=== PATIENT | female | born 1965 | race Caucasian/White ===

== ENCOUNTER 2017-08-31 14:35 | Observation (INO) | payer OTHER ==
[~2017-08-31] VITALS: Ht 162.6 cm; Wt 65.0 kg
[~2017-08-31 14:35] MED LIST: LIDOCAINE HCL 1% PF 5 ML SYRINGE OTHER ONE; PROPOFOL 200 MG/20 ML AMP IV ONE
[2017-08-31 15:02] VITALS: BP 131/67; PULSE 88; RESP 18; TEMP 98.5; O2SAT 98
[2017-08-31] MEDS ORDERED: AMLO10TA2 PO (15:19)
[2017-08-31 15:20] VITALS: BP 133/67; PULSE 85; RESP 14; TEMP 98.1; O2SAT 100
--- NOTE | 2017-08-31 15:29 | PD ---
HPI Chief Complaint: Foreign Body Time Seen by Provider: 15:18 Travel History International Travel<30 days: No Contact w/Intl Traveler<30days: No Traveled to known affect area: No History of Present Illness HPI 51-year-old female complains of problem with swallowing. Patient states that she was eating pizza yesterday and the food bolus stuck behind her neck. Patient denies any chest pain or shortness of breath. Patient was unable to keep down any fluid or any fluid since yesterday. Patient denies any fever chills. Patient denies abdominal pain. Patient denies any problem with swallowing in the past. Patient has history of hypertension on medication for that. Patient denies history of diabetes. Patient is a non-smoker. Patient denies any history of CAD. PFSH Past Medical History Diminished Hearing: No Tetanus Vaccination: > 5 Years Influenza Vaccination: Yes ?: Not LMP: may 2017 : 3 Para: 3 Social History Alcohol Use: No Tobacco Use: No Substance Use: No Allergies-Medications (Allergen,Severity, Reaction): Coded Allergies: No Known Allergies (Verified Allergy, Unknown, 08/31/17) Reported Meds & Prescriptions Reported Meds & Active Scripts Active Reported Amlodipine (Amlodipine Besylate) 10 Mg Tab 10 Mg PO DAILY Review of Systems General / Constitutional: No: Fever Eyes: No: Visual changes HENT: No: Headaches Cardiovascular: No: Chest Pain or Discomfort Respiratory: No: Shortness of Breath Gastrointestinal: No: Abdominal Pain Genitourinary: No: Dysuria Musculoskeletal: No: Pain Skin: No Rash Neurologic: No: Weakness Psychiatric: No: Depression Endocrine: No: Polydipsia Hematologic/Lymphatic: No: Easy Bruising Physical Exam Narrative GENERAL: Well-nourished, well-developed patient. SKIN: Focused skin assessment warm/dry. HEAD: Normocephalic. EYES: No scleral icterus. No injection or drainage. NECK: Supple, trachea midline. No JVD or lymphadenopathy. CARDIOVASCULAR: Regular rate and rhythm without murmurs, gallops, or rubs. RESPIRATORY: Breath sounds equal bilaterally. No accessory muscle use. GASTROINTESTINAL: Abdomen soft, non-tender, nondistended. MUSCULOSKELETAL: No cyanosis, or edema. BACK: Nontender without obvious deformity. No CVA tenderness. Neurologic exam normal. Data Data Last Documented VS Vital Signs Date Time Temp Pulse Resp B/P (MAP) Pulse Ox O2 Delivery O2 Flow Rate FiO2 08/31/17 15:20 98.1 85 14 133/67 (89) 100 Room Air Orders Orders Electrocardiogram (08/31/17 15:22) Complete Blood Count With Diff (08/31/17 15:22) Comprehensive Metabolic Panel (08/31/17 15:22) Prothrombin Time / Inr (Pt) (08/31/17 15:22) Act Partial Throm Time (Ptt) (08/31/17 15:22) Chest, Single Ap (08/31/17 15:22) Iv Access Insert/Monitor (08/31/17 15:22) Ecg Monitoring (08/31/17 15:22) Oximetry (08/31/17 15:22) Sodium Chlor 0.9% 1000 Ml Inj (Ns 1000 M (08/31/17 15:30) Glucagon Inj (Glucagon Inj) (08/31/17 15:30) MDM Medical Decision Making Medical Screen Exam Complete: Yes Emergency Medical Condition: Yes Differential Diagnosis Differential diagnosis including esophageal obstruction. Narrative Course 51-year-old female with symptoms typical of esophageal food bolus obstruction. Normal saline solution 1 25 cc an hour. Glucagon 2 gram IV. Diagnosis Primary Impression: Esophageal obstruction due to food impaction Admitting Information Admitting Physician Requests: Observation Ignacio Guajardo MD Aug 31, 2017 15:29
[2017-08-31] MEDS ORDERED: GLUCAGON 1 MG/ML VIAL IV PUSH ONE (15:30)
[2017-08-31] MEDS ORDERED: SODIUM CHLOR 0.9% 1000 ML INJ 1,000 ML IV SCH (15:30)
[2017-08-31 15:52] VITALS: BP 136/77; PULSE 77; RESP 14; TEMP 98.1; O2SAT 100
--- NOTE | 2017-08-31 15:57 | RADRPT ---
EXAM DATE/TIME: 08/31/2017 15:30 [facility] COMPARISON: No previous studies available for comparison. INDICATIONS : Shortness of breath after getting food stuck in throat last night. MEDICAL HISTORY : Hypertension. SURGICAL HISTORY : Breast reduction. ENCOUNTER: Initial ACUITY: 2 days PAIN SCORE: 0/10 LOCATION: Bilateral chest FINDINGS: A single view of the chest demonstrates the lungs to be symmetrically aerated without evidence of mas s, infiltrate or effusion. The cardiomediastinal contours are unremarkable. Osseous structures are intact. CONCLUSION: Normal examination. Rl Anguiano MD on August 31, 2017 at 15:54 Board Certified Radiologist. This report was verified electronically.
[2017-08-31 16:04] LABS: BASOPHIL # 0.1 TH/MM3 (0-0.2); BASOPHIL % 0.8 % (0.0-2.0); EOSINOPHIL # 0.2 TH/MM3 (0-0.4); EOSINOPHIL % 2.9 % (0.0-4.0); HEMATOCRIT 40.7 % (35.0-46.0); LYMPH % 32.6 % (9.0-44.0); LYMPHOCYTE # 2.3 TH/MM3 (1.0-4.8); MEAN CORPUSCULAR HEMOGLOBIN 30.2 PG (27.0-34.0); MEAN CORPUSCULAR HGB CONC 34.3 % (32.0-36.0); MEAN PLATELET VOLUME 8.2 FL (7.0-11.0); MONO % 7.1 % (0.0-8.0); MONOCYTE # 0.5 TH/MM3 (0-0.9); NEUT % 56.6 % (16.0-70.0); PLATELET COUNT 372 TH/MM3 (150-450); RED BLOOD COUNT 4.63 MIL/MM3 (4.00-5.30); RED CELL DISTRIBUTION WIDTH 13.2 % (11.6-17.2); WHITE BLOOD COUNT 7.1 TH/MM3 (4.0-11.0)
[2017-08-31 16:14] LABS: INTERNATIONAL NORMALIZED RATIO 1.1 RATIO; PROTHROMBIN TIME - PATIENT 10.9 SEC (9.8-11.6)
[2017-08-31 16:23] LABS: ALT (GPT) 28 U/L (10-53); AST (GOT) 31 U/L (15-37); BICARBONATE 29.7 MEQ/L (21.0-32.0); BLOOD UREA NITROGEN 15 MG/DL (7-18); CALCIUM 9.4 MG/DL (8.5-10.1); CHLORIDE 105 MEQ/L (98-107); CREATININE 0.77 MG/DL (0.50-1.00); GLOMERULAR FILTRATION RATE 79 ML/MIN (>89); GLUCOSE,RANDOM 80 MG/DL (74-106); SODIUM (NA) 142 MEQ/L (136-145)
[2017-08-31 16:26] LABS: ALBUMIN 4.2 GM/DL (3.4-5.0); ALKALINE PHOSPHATASE 74 U/L (45-117); TOTAL BILIRUBIN ADULT 0.6 MG/DL (0.2-1.0); TOTAL PROTEIN 8.2 GM/DL (6.4-8.2)
[2017-08-31 16:43] VITALS: BP 132/81; TEMP 97.8
[2017-08-31] MEDS ORDERED: DO NOT ADM ANY ANTICOAGULANT DRUGS PRN (17:16)
--- NOTE | 2017-08-31 17:22 | PD.CONS ---
HPI History of Present Illness This is a 51 year old female who presents with complaints of a food bolus stuck in the esophagus she was eating pizza yesterday and her feeling has persisted she is not in any distress and is able to handle most of her secretions but she does have this terrible sensation she reports having had on and off episodes of dysphagia in the past but they have resolved spontaneously except for this 1 and it seems that her symptoms have gotten better since she got the glucagon while in the emergency department PFSH Past Medical History Hypertension Past Surgical History None Coded Allergies: No Known Allergies (Verified Allergy, Unknown, 08/31/17) Medications Amlodipine Family History Noncontributory Social History Occasional alcohol Review of Systems Review of systems Patient denies any headache dizziness blurry vision, denies any chest pain shortness of breath cough fever chills, Denies any palpitations or fatigue denies any polyuria dysuria hematuria, denies any numbness tingling or weakness, denies any skin rash pruritus or jaundice, denies any easy bruising or bleeding tendency, denies any recent change in mood GI Exam Vitals I&O Vital Signs Date Time Temp Pulse Resp B/P (MAP) Pulse Ox O2 Delivery O2 Flow Rate FiO2 08/31/17 16:43 97.8 78 16 132/81 (98) 99 08/31/17 15:52 98.1 77 14 136/77 (96) 100 Room Air 08/31/17 15:20 98.1 85 14 133/67 (89) 100 Room Air 08/31/17 15:20 85 13 08/31/17 15:02 98.5 88 18 131/67 (88) 98 Imaging Last 48 hours Impressions Chest X-Ray 08/31/17 1522 Signed Impressions: Service Date/Time: August 15:30 - CONCLUSION: Normal examination. Rl Anguiano MD Laboratory Test 08/31/17 15:30 White Blood Count 7.1 TH/MM3 Red Blood Count 4.63 MIL/MM3 Hemoglobin 14.0 GM/DL Hematocrit 40.7 % Mean Corpuscular Volume 88.0 FL Mean Corpuscular Hemoglobin 30.2 PG Mean Corpuscular Hemoglobin Concent 34.3 % Red Cell Distribution Width 13.2 % Platelet Count 372 TH/MM3 Mean Platelet Volume 8.2 FL Neutrophils (%) (Auto) 56.6 % Lymphocytes (%) (Auto) 32.6 % Monocytes (%) (Auto) 7.1 % Eosinophils (%) (Auto) 2.9 % Basophils (%) (Auto) 0.8 % Neutrophils # (Auto) 4.0 TH/MM3 Lymphocytes # (Auto) 2.3 TH/MM3 Monocytes # (Auto) 0.5 TH/MM3 Eosinophils # (Auto) 0.2 TH/MM3 Basophils # (Auto) 0.1 TH/MM3 CBC Comment DIFF FINAL Differential Comment Prothrombin Time 10.9 SEC Prothromb Time International Ratio 1.1 RATIO Activated Partial Thromboplast Time 24.7 SEC Blood Urea Nitrogen 15 MG/DL Creatinine 0.77 MG/DL Random Glucose 80 MG/DL Total Protein 8.2 GM/DL Albumin 4.2 GM/DL Calcium Level 9.4 MG/DL Alkaline Phosphatase 74 U/L Aspartate Amino Transf (AST/SGOT) 31 U/L Alanine Aminotransferase (ALT/SGPT) 28 U/L Total Bilirubin 0.6 MG/DL Sodium Level 142 MEQ/L Potassium Level 3.6 MEQ/L Chloride Level 105 MEQ/L Carbon Dioxide Level 29.7 MEQ/L Anion Gap 7 MEQ/L Estimat Glomerular Filtration Rate 79 ML/MIN Physical Examination HEENT: Pupils round and reactive to light; normocephalic; atraumatic; no jaundice. Throat is clear. NECK: Neck is supple, no JVD, no lymphadenopathy. CHEST: Chest is clear to auscultation and percussion. CARDIAC: Regular rate and rhythm with no murmur gallop or rubs. ABDOMEN: Soft, nondistended, nontender; no hepatosplenomegaly; bowel sounds are present in all four quadrants. EXTREMITIES: No clubbing, cyanosis, or edema. SKIN: Normal; no rash; no jaundice. RETAIL ADMINISTRATIVE ASSISTANT: No focal deficits; alert and oriented times three. Assessment and Plan Plan Food bolus impaction Patient to have an EGD with disimpaction Michael Alvarez MD Aug 31, 2017 17:22
--- NOTE | 2017-08-31 17:24 | PD.PROCEDR ---
GI Procedure PROCEDURE PERFORMED EGD with food bolus removal and dilation and biopsy INDICATION FOR PROCEDURE Food bolus impaction, dysphagia PROCEDURE: The procedure, risks and benefits were discussed with Patient/POA and informed consent was obtained. Anesthesia sedated Patient with Diprivan. Patient was placed in the left lateral decubitus position. EGD: The Pentax videoscope was introduced through the oropharynx and advanced to the second portion of the duodenum under direct visualization. Retroflexion was performed in the stomach. FINDINGS: The esophagus there was a piece of meat noted in the distal esophagus this was removed with a rough net the esophagus was noted to be somewhat narrowed at the distal and enough to cause resistance to the passage of the scope into the stomach but otherwise the mucosa appeared to be unremarkable I dilated the esophagus with a size 15 savory dilator over a guidewire postdilatation view reveals a small rent and biopsies were taken from the distal esophagus The stomach this was normal The duodenum this was normal ESTIMATED BLOOD LOSS: Minimal SPECIMENS REMOVED: Esophageal biopsies COMPLICATIONS: None IMPRESSION: Food bolus impaction Esophageal stricture PLAN: Await biopsies Follow-up with GI in 2-4 weeks Chew food well Okay for discharge from a GI standpoint Michael Alvarez MD Aug 31, 2017 17:24
[2017-08-31 17:58] VITALS: BP 128/78; PULSE 80; RESP 20; TEMP 98; O2SAT 100
--- NOTE | 2017-09-01 13:35 | EKG ---
Date Performed: 08/31/2017 Time Performed: 15:49:58 PTAGE: 51 years EKG: Sinus rhythm LOW QRS VOLTAGE IN PRECORDIAL LEADS INCOMPLETE RIGHT BUNDLE BRANCH BLOCK BORDERLINE ECG NO PREVIOUS TRACING DOCTOR: Pradeep Ragland Interpretating Date/Time 09/04/2017 12:50:55
== END 2017-08-31 18:00 | disposition home or self-care (01) ==
LOC: NEPC 14:35 → NEDA 16:09 → HPAC 16:46
PROVIDERS: ADMIT Internal Medicine Gastroenterology; ATTEND Internal Medicine Gastroenterology
DX: K22.2 Esophageal obstruction (principal); T18.128A Food in esophagus causing other injury, initial encounter; K21.0 Gastro-esophageal reflux disease with esophagitis; I10 Essential (primary) hypertension
CPT/HCPCS: 00731; 43239; 43247; 71045; 80053; 85025; 85610; 85730; 88305; 93005; 96374; 99285; C1769; J7030; J1610